=== PATIENT | female | born 1960 | race Hispanic/Latino ===

== ENCOUNTER 2024-10-27 14:55 | Emergency (ER) | payer SELFPAY ==
[2024-10-27] MEDS ORDERED: IBUPROFEN 200 MG TAB PO ONE (15:42)
[2024-10-27] MEDS ORDERED: TDAP (DIPHTH,PERTUSS(ACELL),TET VAC) 0.5 ML VIAL IMVAC ONE (15:42)
--- NOTE | 2024-10-27 16:15 | EDPHYS ---
Physician Documentation [facility] Name: Marina Reese Age: 64 yrs Sex: Female : 1960 Arrival Date: 10/27/2024 Time: 14:55 Bed 10 Private MD: ED Physician Parag Anderson HPI: 10/27 16:09 This 64 yrs old Female presents to ER via Ambulatory with complaints of Fall evan Injury. 16:09 Details of fall: The patient fell from an upright position, while walking. Onset: The evan symptoms/episode began/occurred just prior to arrival. Associated injuries: The patient sustained left hand and left arm, abrasion, contusion, decreased range of motion, painful injury, swelling. Severity of symptoms: At their worst the symptoms were moderate, in the emergency department the symptoms are unchanged. The patient has not experienced similar symptoms in the past. Historical: - Allergies: 15:15 No Known Allergies; ss - PMHx: 15:15 Diabetes mellitus; Hypercholesterolemia; Hypertensive disorder; parkinsons; ss - PSHx: 15:15 None; ss - Immunization history:: Client reports receiving the 2nd dose of the Covid vaccine. - Infectious Disease History:: Denies. - Social history:: Smoking status: Patient denies any tobacco usage or history of. ROS: 16:09 Constitutional: Negative for fever, chills, and weight loss, Eyes: Negative for injury, evan pain, redness, and discharge, ENT: Negative for injury, pain, and discharge, Neck: Negative for injury, pain, and swelling, Cardiovascular: Negative for chest pain, palpitations, and edema, Respiratory: Negative for shortness of breath, cough, wheezing, and pleuritic chest pain, Abdomen/GI: Negative for abdominal pain, nausea, vomiting, diarrhea, and constipation, Back: Negative for injury and pain, : Negative for injury, bleeding, discharge, and swelling, Neuro: Negative for headache, weakness, numbness, tingling, and seizure, Psych: Negative for depression, anxiety, suicide ideation, homicidal ideation, and hallucinations, Allergy/Immunology: Negative for hives, rash, and allergies, Endocrine: Negative for neck swelling, polydipsia, polyuria, polyphagia, and marked weight changes, Hematologic/Lymphatic: Negative for swollen nodes, abnormal bleeding, and unusual bruising, 16:09 MS/extremity: Positive for abrasion, decreased range of motion, pain, swelling, tenderness, of the left hand and left arm, Exam: 16:09 Constitutional: This is a well developed, well nourished patient who is awake, alert, evan and in no acute distress. Head/Face: Normocephalic, atraumatic. Eyes: Pupils equal round and reactive to light, extra-ocular motions intact. Lids and lashes normal. Conjunctiva and sclera are non-icteric and not injected. Cornea within normal limits. Periorbital areas with no swelling, redness, or edema. ENT: Nares patent. No nasal discharge, no septal abnormalities noted. Tympanic membranes are normal and external auditory canals are clear. Oropharynx with no redness, swelling, or masses, exudates, or evidence of obstruction, uvula midline. Mucous membranes moist. Neck: Trachea midline, no thyromegaly or masses palpated, and no cervical lymphadenopathy. Supple, full range of motion without nuchal rigidity, or vertebral point tenderness. No Meningismus. Chest/axilla: Normal chest wall appearance and motion. Nontender with no deformity. No lesions are appreciated. Cardiovascular: Regular rate and rhythm with a normal S1 and S2. No gallops, murmurs, or rubs. Normal PMI, no JVD. No pulse deficits. Respiratory: Lungs have equal breath sounds bilaterally, clear to auscultation and percussion. No rales, rhonchi or wheezes noted. No increased work of breathing, no retractions or nasal flaring. Abdomen/GI: Soft, non-tender, with normal bowel sounds. No distension or tympany. No guarding or rebound. No evidence of tenderness throughout. Back: No spinal tenderness. No costovertebral tenderness. Full range of motion. Neuro: Awake and alert, GCS 15, oriented to person, place, time, and situation. Cranial nerves II-XII grossly intact. Motor strength 5/5 in all extremities. Sensory grossly intact. Cerebellar exam normal. Normal gait. Psych: Awake, alert, with orientation to person, place and time. Behavior, mood, and affect are within normal limits. 16:09 Skin: abscess, not appreciated, cellulitis, is not appreciated, induration, that is mild is noted, Vital Signs: 15:13 BP 151 / 76; Pulse 75; Resp 15; Temp 98.2(TE); Pulse Ox 100% ; Weight 80 kg; Height 5 ss ft. 2 in. ; Pain 8/10; 15:13 Body Mass Index 32.26 (80.00 kg, 157.48 cm) 15:13 Pain Scale: Adult ss MDM: 14:58 Medical Screening Exam initiated [facility] 16:12 Data reviewed: vital signs, nurses notes, radiologic studies, plain films. [facility] 10/27 15:36 Order name: Elbow Left 3 View XRAY [facility] 10/27 15:36 Order name: Hand Left 3 View XRAY [facility] 10/27 15:36 Order name: Wound Care; Complete Time: 15:57 [facility] 10/27 15:36 Order name: Ice pack; Complete Time: 15:56 [facility] Administered Medications: 15:56 Drug: Zrjltbwo-Ifytmgopfg-Vtughstkg Topical Ointment 1 application Topical once Route: ss Topical; Site: left hand; 15:56 Drug: Ibuprofen PO 600 mg PO once Route: PO; ss 16:39 Follow up: Response: No adverse reaction 15:57 Drug: Boostrix Tdap IM 0.5 ml IM once; as a single dose {Note: LOT M77CC 11/29/26.} ss Route: IM; Site: right deltoid; 16:39 Follow up: Response: No adverse reaction Disposition Summary: 10/27/24 16:15 Discharge Ordered Notes: Location: Home evan Problem: new evan Symptoms: have improved evan Condition: Stable evan Diagnosis - Fall on same level, unspecified evan - Abrasion of left hand evan - Contusion of left elbow evan - Contusion of left hand evan Followup: evan - With: Private Physician - When: 2 - 3 days - Reason: Recheck today's complaints, Continuance of care, Re-evaluation by your physician Followup: evan - With: Espinoza Bridges MD - When: 2 - 3 days - Reason: Recheck today's complaints, Re-evaluation by your physician Followup: evan - With: Andres Heath MD - When: 2 - 3 days - Reason: Recheck today's complaints, Re-evaluation by your physician Discharge Instructions: - Discharge Summary Sheet evan - Abrasion evan - Hand Contusion evan - Elbow Contusion evan - Hand Contusion, Fwcl-wa-Fggy evan - Abrasion, Arxu-yy-Orks evan - Elbow Contusion, Mmva-fr-Axpg evan - Elbow Sprain evan Forms: - Medication Reconciliation Form evan - Antibiotic Education evan - Prescription Opioid Use evan - Patient Portal Instructions evan - Leadership Thank You Letter evan - Work release form ss Prescriptions: - Neosporin (jzl-vqa-rwzps) 3.5-400-5,000 [id number]-mvkd Topical Ointment in Packet - apply 1 application TOPICAL route 3 times per day; 30 gram; Refills: 0, Product [facility] Selection Permitted - Ibuprofen 600 mg Oral tablet - take 1 tablet ORAL route every 6 hours As needed take with food; 20 tablet; evan Refills: 0, Product Selection Permitted Signatures: Dispatcher [employer] EDParag White MD MD cha Blanchard, Shelby RN RN ss Corrections: (The following items were deleted from the chart) 15:16 15:15 PMHx: Hypertensive disorder; ss ss 15:36 15:36 Elbow Left 3 View+RAD.RAD.BRZ ordered. EDMS EDMS 15:36 15:36 Hand Left 3 View+RAD.RAD.BRZ ordered. EDMS EDMS
--- NOTE | 2024-10-27 16:15 | ER ---
Nurse's Notes [facility] Name: Marina Reese Age: 64 yrs Sex: Female : 1960 Arrival Date: 10/27/2024 Time: 14:55 Bed 10 Private MD: Diagnosis: Fall on same level, unspecified;Abrasion of left hand;Contusion of left elbow;Contusion of left hand Presentation: 10/27 15:13 Chief complaint: Patient states: tripped and fell from standing position while taking ss the trash out. Pt c/o pain to L elbow and L hand. Coronavirus screen: Client denies travel out of the [place] in the last 14 days. Ebola Screen: Patient denies exposure to infectious person. Patient denies travel to an Ebola-affected area in the 21 days before illness onset. Initial Sepsis Screen: Does the patient meet any 2 criteria? No. Patient's initial sepsis screen is negative. Does the patient have a suspected source of infection? No. Patient's initial sepsis screen is negative. Risk Assessment: Do you want to hurt yourself or someone else? Patient reports no desire to harm self or others. Onset of symptoms was October 27, 2024. 15:13 Method Of Arrival: Ambulatory ss 15:13 Acuity: TAISHA 4 ss Historical: - Allergies: 15:15 No Known Allergies; ss - PMHx: 15:15 Diabetes mellitus; Hypercholesterolemia; Hypertensive disorder; parkinsons; ss - PSHx: 15:15 None; ss - Immunization history:: Client reports receiving the 2nd dose of the Covid vaccine. - Infectious Disease History:: Denies. - Social history:: Smoking status: Patient denies any tobacco usage or history of. Screenin:53 Abuse screen: Denies threats or abuse. Denies injuries from another. Nutritional ss screening: No deficits noted. Tuberculosis screening: Never had TB. Assessment: 16:53 Reassessment: Patient appears in no apparent distress at this time. Patient and/or ss family updated on plan of care and expected duration. Pain level reassessed. Patient is alert, oriented x 3, equal unlabored respirations, skin warm/dry/pink. Vital Signs: 15:13 BP 151 / 76; Pulse 75; Resp 15; Temp 98.2(TE); Pulse Ox 100% ; Weight 80 kg; Height 5 ss ft. 2 in. ; Pain 8/10; 15:13 Body Mass Index 32.26 (80.00 kg, 157.48 cm) ss 15:13 Pain Scale: Adult ss ED Course: 14:58 Patient arrived in ED. im 14:58 Parag Anderson MD is Attending Physician. evan 15:15 Triage completed. ss 15:15 Arm band placed on right wrist. ss 15:39 Nati Hoffman, RN is Primary Nurse. ss 16:14 Espinoza Bridges MD is Referral Physician. evan 16:15 Referral Physician role handed off by Espinoza Bridges MD evan 16:15 Andres Heath MD is Referral Physician. evan 16:16 Elbow Left 3 View XRAY In Process Unspecified. EDMS 16:17 Hand Left 3 View XRAY In Process Unspecified. EDMS 16:53 Patient has correct armband on for positive identification. ss 16:53 No provider procedures requiring assistance completed. Patient did not have IV access ss during this emergency room visit. Administered Medications: 15:56 Drug: Iejfbszw-Kgkwqshtvy-Pngxpifsv Topical Ointment 1 application Topical once Route: ss Topical; Site: left hand; 15:56 Drug: Ibuprofen PO 600 mg PO once Route: PO; ss 16:39 Follow up: Response: No adverse reaction 15:57 Drug: Boostrix Tdap IM 0.5 ml IM once; as a single dose {Note: LOT M77CC 11/29/26.} ss Route: IM; Site: right deltoid; 16:39 Follow up: Response: No adverse reaction ss Medication: 16:53 VIS not applicable for this client. ss Outcome: 16:15 Discharge ordered by . [facility] 16:53 Discharged to home ambulatory, ss 16:53 Condition: good 16:53 Discharge instructions given to patient, Instructed on discharge instructions, follow up and referral plans. medication usage, Demonstrated understanding of instructions, follow-up care, medications, Prescriptions given X 2, 16:55 Patient left the ED. ss Signatures: Dispatcher [employer] EDParag White MD MD cha Blanchard, Shelby, RN RN Ercia Son Corrections: (The following items were deleted from the chart) 15:16 15:15 PMHx: Hypertensive disorder; ss ss
--- NOTE | 2024-10-27 16:30 | RAD REPORT ---
Exam:Elbow Left 3 View HISTORY: Left elbow pain FINDINGS: No fracture or dislocation seen
--- NOTE | 2024-10-27 16:32 | RAD REPORT ---
Exam:Hand Left 3 View CLINICAL HISTORY: Left hand pain FINDINGS: No fracture or dislocation seen
[2024-10-27 16:59] VITALS: BP 151/76; TEMP 98.2; O2SAT 100
== END 2024-10-27 16:55 | disposition home or self-care (01) ==
LOC: ER 14:55
DX: S60.512A Abrasion of left hand, initial encounter (principal); S50.02XA Contusion of left elbow, initial encounter; S60.222A Contusion of left hand, initial encounter; W18.30XA Fall on same level, unspecified, initial encounter
CPT/HCPCS: 96372; 99284